=== PATIENT | female | born 1935 | race Hispanic/Latino ===

== ENCOUNTER 2018-10-06 09:25 | Emergency (ER) | payer MEDICARE ==
[2018-10-06 09:25] VITALS: BMI 21.7
--- NOTE | 2018-10-06 09:58 | ED PDOC ---
Arrival/HPI - General Chief Complaint: Altered Mental Status Historian: Patient - History of Present Illness Narrative History of Present Illness (Text): 10/06/18 09:55 Pt is an 83 yo female with unknown PMH who was BIBA after her called EMS because the pt was altered. Pt is unsure of her own PMH, PSH, she knows her name and where she is but is unsure of the year. Pt does not know the names of her sons. Pt denies chest pain, shortness of breath, headache, dizziness, visual changes, or urinary complaints. Time/Duration: Prior to Arrival Symptom Onset: Sudden Symptom Course: Unchanged Activities at Onset: Rest Context: Sitting Past Medical History - Infectious Disease Hx of Infectious Diseases: None - Tetanus Immunization Tetanus Immunization: Unknown - Reproductive Menopause: Yes - Musculoskeletal/Rheumatological Hx Falls: No - Psychiatric Hx Depression: No Hx Emotional Abuse: No Hx Physical Abuse: No Hx Substance Use: No - Suicidal Assessment Feels Threatened In Home Enviroment: No Family/Social History Family/Social History: Unknown Family HX Smoking Status: Never Smoked Hx Alcohol Use: No Hx Substance Use: No Hx Substance Use Treatment: No Allergies/Home Meds Allergies/Adverse Reactions: Allergies No Known Allergies Allergy (Verified 07/01/12 11:17) Home Medications: Home Meds Medication Instructions Recorded Confirmed Simvastatin 0 mg PO 07/01/12 07/01/12 Review of Systems - Review of Systems Constitutional: Normal Eyes: Normal ENT: Normal Respiratory: Normal Cardiovascular: Normal Gastrointestinal: Normal Genitourinary Female: Normal Musculoskeletal: Normal Skin: Normal Neurological: Other (AMS) Endocrine: Normal Hemo/Lymphatic: Normal Psychiatric: Normal Physical Exam - Physical Exam Physical Exam Limitations: Altered Mental Status Vital Signs Reviewed: Yes Vital Signs Temp Pulse Resp BP Pulse Ox 10/06/18 09:35 98.1 F 80 20 168/117 H 98 Temperature: Afebrile Blood Pressure: Normal Pulse: Regular Respiratory Rate: Normal Appearance: Positive for: Well-Appearing Mental Status: Positive for: Confused. No: Alert and Oriented X 3, Agitated, Lethargic, Comatose Finger Stick Blood Glucose: 113 - Systems Exam Head: Present: Atraumatic, Normocephalic Pupils: Present: PERRL Extroacular Muscles: Present: EOMI Mouth: Present: Moist Mucous Membranes Neck: Present: Normal Range of Motion Respiratory/Chest: Present: Clear to Auscultation, Good Air Exchange. No: Respiratory Distress, Accessory Muscle Use Cardiovascular: Present: Regular Rate and Rhythm, Normal S1, S2. No: Murmurs Abdomen: Present: Normal Bowel Sounds. No: Tenderness, Distention Upper Extremity: Present: Normal Inspection Lower Extremity: Present: Normal Inspection Skin: Present: Warm, Dry, Normal Color Psychiatric: Present: Alert. No: Oriented x 3 Medical Decision Making ED Course and Treatment: 10/06/18 10:00 AMS Trop CBC CMP UA blood cultures urine cultures Coag CXR EKG CT head 10/06/18 10:20 attempted to call spouse [phone], no answer, no answering machine 10/06/18 10:29 Pt son and daughter in law are both present at bedside. They report that pt has been diagnosed with Alzheimer Disease about 5 years ago. Pt has gotten confused while at home and does not believe she is in her home and calls 911 for help. She has no major medical problems. PMD Dr Washington 10/06/18 11:[address], blood work and UA show no signs of acute pathology contributing to the pt AMS Pt seen, examined, assessment and plan discussed with Dr Faith Artis PGY1 - Lab Interpretations Lab Results: 10/06/18 10:12 10/06/18 10:12 Lab Results 10/06/18 11:18: Urine Color Yellow, Urine Appearance Clear, Urine pH 7.0, Ur Specific [place] 1.010, Urine Protein Negative, Urine Glucose (UA) Negative, Urine Ketones Negative, Urine Blood Negative, Urine Nitrate Negative, Urine Bilirubin Negative, Urine Urobilinogen 0.2, Ur Leukocyte Esterase Trace H, Urine RBC Pending, Urine WBC Pending 10/06/18 10:12: Sodium 141, Potassium 4.2, Chloride 106, Carbon Dioxide 27, Anion Gap 13, BUN 23 H, Creatinine 0.6 L, Est GFR ( Amer) > 60, Est GFR (Non-Af Amer) > 60, Random Glucose 109, Calcium 9.0, Total Bilirubin 0.5, AST 20, ALT 16, Alkaline Phosphatase 79, Troponin I < 0.01, Total Protein 7.2, A lbumin 4.0, Globulin 3.2, Albumin/Globulin Ratio 1.3 10/06/18 10:12: PT 11.5, INR 1.02, APTT 31.8 10/06/18 10:12: WBC 4.6, RBC 4.59, Hgb 13.5, Hct 41.3, MCV 90.0, MCH 29.4, MCHC 32.7, RDW 13.8, Plt Count 180, MPV 10.3 I have reviewed the lab results: Yes - RAD Interpretation Radiology Orders: 10/06/18 09:51 HEAD W/O CONTRAST [CT] Stat 10/06/18 09:52 CHEST PORTABLE [RAD] Stat Disposition/Present on Arrival - Present on Arrival Any Indicators Present on Arrival: No History of DVT/PE: No History of Uncontrolled Diabetes: No Urinary Catheter: No History of Decub. Ulcer: No History Surgical Site Infection Following: None - Disposition Have Diagnosis and Disposition been Completed?: Yes Diagnosis: Altered mental status Disposition: HOME/ ROUTINE Disposition Time: 11:50 Patient Plan: Discharge Patient Problems: Current Active Problems Problem Status Onset Altered mental status Acute Condition: GOOD Discharge Instructions (ExitCare): Delirium (Confusion), Altered Mental Status (DC) Additional Instructions: Please stay with patient for the remainder of the day to ensure her safety Referrals: Dawson Washington MD [Primary Care Provider] - Follow up with primary Forms: [employer] ([place]ian)
--- NOTE | 2018-10-06 10:21 | RAD ---
Date of service: 10/06/2018 HISTORY: AMS COMPARISON: 07/01/2012 TECHNIQUE: 1 view obtained. FINDINGS: LUNGS: No active pulmonary disease. PLEURA: No significant pleural effusion identified, no pneumothorax apparent. CARDIOVASCULAR: Aortic calcification Normal cardiac size. No pulmonary vascular congestion. OSSEOUS STRUCTURES: No significant abnormalities. VISUALIZED UPPER ABDOMEN: Normal. OTHER FINDINGS: None. IMPRESSION: No active disease.
[2018-10-06 10:33] LABS: HEMOGLOBIN 13.5 g/dL (12.0-16.0); MEAN CORPUSCULAR HEMOGLOBIN 29.4 pg (25.0-35.0); MEAN CORPUSCULAR HGB CONC 32.7 g/dl (31.0-37.0); MEAN PLATELET VOLUME 10.3 fl (7.0-11.0); RBC 4.59 10^6/uL (3.5-6.1); RED CELL DISTRIBUTION WIDTH 13.8 % (11.5-14.5); WHITE BLOOD COUNT 4.6 10^3/uL (4.5-11.0)
[2018-10-06 10:34] LABS: ALB/GLOB RATIO 1.3 (1.1-1.8); ALT/SGPT 16 U/L (7-56); AST/SGOT 20 U/L (14-36); BLOOD UREA NITROGEN 23 mg/dL (7-21); GFR NON-AFRICAN AMERICAN > 60
[2018-10-06 10:46] LABS: INR 1.02; PARTIAL THROMBOPLASTIN TIME 31.8 Seconds (26.9-38.3); PROTHROMBIN TIME 11.5 SECONDS (9.4-12.5); TROPONIN I < 0.01 ng/mL
--- NOTE | 2018-10-06 10:51 | CT ---
Date of service: 10/06/2018 PROCEDURE: CT HEAD WITHOUT CONTRAST. HISTORY: AMS COMPARISON: 07/01/2012 TECHNIQUE: Axial computed tomography images were obtained through the head/brain without intravenous contrast. Radiation dose: Total exam DLP = 709.45 mGy-cm. This CT exam was performed using one or more of the following dose reduction techniques: Automated exposure control, adjustment of the mA and/or kV according to patient size, and/or use of iterative reconstruction technique. FINDINGS: HEMORRHAGE: No intracranial hemorrhage. BRAIN: No mass effect or edema. Chronic microvascular changes and moderate atrophy. VENTRICLES: Unremarkable. No hydrocephalus. CALVARIUM: Unremarkable. PARANASAL SINUSES: Unremarkable as visualized. No significant inflammatory changes. MASTOID AIR CELLS: Unremarkable as visualized. No inflammatory changes. OTHER FINDINGS: None. IMPRESSION: No acute findings
[2018-10-06 11:29] LABS: URINE BILIRUBIN NEGATIVE (NEGATIVE); URINE BLOOD NEGATIVE (NEGATIVE); URINE GLUCOSE (UA) NEGATIVE (NEGATIVE); URINE LEUKOCYTE ESTERASE TRACE Leu/uL (NEGATIVE); URINE PROTEIN NEGATIVE mg/dL (<30 mg/dL); URINE UROBILINOGEN 0.2 E.U./dL (<1 E.U./dL)
[2018-10-06 11:33] LABS: URINE APPEARANCE CLEAR (CLEAR); URINE COLOR YELLOW (YELLOW)
[2018-10-06 11:54] VITALS: BP 150/77; RESP 15; O2SAT 97
[2018-10-06 11:55] VITALS: PULSE 88; TEMP 98.3
[2018-10-06 12:01] LABS: URINE BACTERIA MOD /hpf; URINE RBC 0 - 2 /hpf (0-2)
--- NOTE | 2018-10-06 18:13 | CARD ---
APPROVED REPORT Date of service: 10/06/2018 EKG Measurement Heart [id number] <Conclusion> Normal sinus rhythm Minimal voltage criteria for LVH, may be normal variant Minor NDSTT abnormalities Borderline ECG
== END 2018-10-06 11:54 | disposition home or self-care (01) ==
LOC: ED 09:25
DX: R41.82 Altered mental status, unspecified (principal)